=== PATIENT | female | born 1985 | race Two or more races ===

== ENCOUNTER 2017-07-30 20:57 | Emergency (ER) | payer MEDICAID ==
--- NOTE | 2017-07-30 21:41 | NUR ---
NO CALL IN WAITING ROOM
--- NOTE | 2017-07-30 22:02 | NUR ---
NO CALL AGAIN
== END 2017-07-30 22:03 | disposition left against medical advice (07) ==
LOC: ER 21:05
DX: Z53.21 Procedure and treatment not carried out due to patient leaving prior to being seen by health care provider (principal)